=== PATIENT | male | born 1975 | race Caucasian/White ===

== ENCOUNTER 2021-05-20 13:40 | Inpatient (IN) | payer MEDICARE, OTHER ==
[~2021-05-20] VITALS: Ht 188 cm; Wt 66.7 kg
[2021-05-20] MEDS ORDERED: LEVETIRACETAM 1000MG PREMIX 100 ML IV ONE (14:15)
[2021-05-20] MEDS ORDERED: LORAZEPAM 2MG/ML CPJ IV ONE (14:15)
[2021-05-20 14:44] LABS: BASOPHILS % 0.5 % (0.0-2.0); EOSINOPHILS % 0.4 % (0.0-5.0); LYMPHOCYTES % 31.3 % (20.0-50.0); MEAN CORPUSCULAR HEMOGLOBIN 34.8 pg (28.0-32.0); MEAN CORPUSCULAR VOLUME 107.3 fL (80.0-94.0); MEAN PLATELET VOLUME 8.1 fl (7.4-10.4); MONOCYTES % 14.9 % (2.0-8.0); NEUTROPHILS % 52.9 % (40.0-76.0); PLATELET 183 x1000/uL (130-400); RED BLOOD CELL COUNT 3.73 mill/uL (4.7-6.1); RED CELL DISTRIBUTION WIDTH 15.6 % (11.6-14.6)
[2021-05-20 14:52] LABS: ETHANOL BLOOD < 10 mg/dL
[2021-05-20 15:00] LABS: CHLORIDE 96 mEq/L (98-107)
[2021-05-20] MEDS ORDERED: LORAZEPAM 1MG TABLET PO ONE (17:45)
[2021-05-20] MEDS ORDERED: MAGNESIUM/ALUMINUM HYDROXIDE/SIMETHICONE 30ML UDC PO PRN (19:15)
[2021-05-20] MEDS ORDERED: NITROGLYCERIN 0.4MG TABLET SL SL PRN (19:15)
[2021-05-20] MEDS ORDERED: CLONIDINE 0.1MG TABLET PO PRN (19:15)
[2021-05-20] MEDS ORDERED: LORAZEPAM 2MG/ML CPJ IV PRN (19:15)
[2021-05-20] MEDS ORDERED: ONDANSETRON HCL 4MG/2ML INJ IV PRN (19:15)
[2021-05-20] MEDS ORDERED: KETOROLAC 15MG/ML VIAL IV PRN (19:15)
[2021-05-20] MEDS ORDERED: IPRATROPIUM/ALBUTEROL 0.5-3(2.5)MG/3ML NEB NEB PRN (19:15)
[2021-05-20] MEDS ORDERED: SODIUM CHLORIDE 0.9% 1,000 ML IV ONE (19:15)
[2021-05-20] MEDS ORDERED: DOCUSATE SODIUM 100MG CAPSULE PO PRN (19:15)
[2021-05-20] MEDS ORDERED: GUAIFENESIN 200MG/10ML SUGAR FREE UDC PO PRN (19:15)
[2021-05-20] MEDS ORDERED: ACETAMINOPHEN 325MG TABLET PO PRN ×2 (19:15)
[2021-05-20 19:30] LABS: TOTAL IRON BINDING CAPACITY 336 ug/dL (250-450)
[2021-05-20 19:44] LABS: FOLIC ACID (FOLATE) SERUM 6.6 ng/mL (>5.38)
[2021-05-20] MEDS ORDERED: POTASSIUM CHLORIDE 20MEQ TABLET SR PO NR (20:00)
[2021-05-20] MEDS ORDERED: MVI, ADULT NO.1 10 ML, FOLIC ACID 1 MG, THIAMINE HCL 100 MG in SODIUM CHLORIDE 0.9% 1,0... IV NR (20:30)
[2021-05-20] MEDS ORDERED: ENOXAPARIN 40MG/0.4ML SYR SUBCUT SCH (21:00)
[2021-05-20] MEDS: FAMOTIDINE 20MG TABLET PO SCH (21:17)
[2021-05-20 22:00] VITALS: BP 162/108
[2021-05-20] MEDS: CHLORDIAZEPOXIDE 25MG CAPSULE PO SCH (22:06)
[2021-05-21] VITALS: BP 140/91
[2021-05-21 00:09] LABS: CREATINE KINASE 101 IU/L (39-308)
[2021-05-21 00:10] LABS: CREATINE KINASE MB FRACTION 1.7 ng/mL (0.5-3.6)
[2021-05-21 04:00] VITALS: BP 140/100
[2021-05-21] MEDS: CHLORDIAZEPOXIDE 25MG CAPSULE PO SCH (05:42)
[2021-05-21 08:00] VITALS: BP_SYST 14; BP_SYST 147; BP_DIAS 93
[2021-05-21] MEDS: FAMOTIDINE 20MG TABLET PO SCH (08:50)
[2021-05-21 10:00] VITALS: BP 142/91
== END 2021-05-21 11:40 | disposition left against medical advice (07) | DRG 100 ==
LOC: ER 13:40 → EDBEDREQTM 19:07 → EDBEDREQ 19:07 → ENRESERV 20:33 → 8WST 21:59
PROVIDERS: ADMIT Internal Medicine; ATTEND Internal Medicine
DX: G40.89 Other seizures (principal); G92.8 Other toxic encephalopathy; E87.1 Hypo-osmolality and hyponatremia; F10.239 Alcohol dependence with withdrawal, unspecified; G40.409 Other generalized epilepsy and epileptic syndromes, not intractable, without status epilepticus; D63.8 Anemia in other chronic diseases classified elsewhere; E87.6 Hypokalemia; Z88.0 Allergy status to penicillin
CPT/HCPCS: 36415; 71045; 80053; 80320; 82550; 82553; 82607; 82746; 82962; 83540; 83550; 84484; 85025; 93005; 93970; 99285; J1650; J1953; J2060; J3411; J3490; J7030; G0480

== ENCOUNTER 2022-05-10 09:48 | Inpatient (IN) | payer MEDICARE ==
[~2022-05-10] VITALS: Ht 190.5 cm; Wt 60.9 kg
[2022-05-10] MEDS ORDERED: FOLIC ACID 1 MG, THIAMINE HCL 100 MG, MVI, ADULT NO.1 10 ML in DEXTROSE 5% WATER 1,000 ML IV ONE ×4 (11:00)
[2022-05-10 12:13] LABS: BASOPHILS % 0.1 % (0.0-2.0); HEMATOCRIT. 29.1 % (42.0-52.0); HEMOGLOBIN. 9.7 g/dL (14.0-18.0); LYMPHOCYTES % 8.9 % (20.0-50.0); MEAN CORPUSCULAR HEMOGLOBIN 36.4 pg (28.0-32.0); MEAN CORPUSCULAR VOLUME 109.6 fL (80.0-94.0); MEAN PLATELET VOLUME 8.9 fl (7.4-10.4); MONOCYTES % 9.2 % (2.0-8.0); NEUTROPHILS % 81.8 % (40.0-76.0); PLATELET 69 x1000/uL (130-400); RED BLOOD CELL COUNT 2.65 mill/uL (4.7-6.1)
[2022-05-10 12:39] LABS: CHLORIDE 99 mEq/L (98-107)
[2022-05-10 13:03] LABS: ETHANOL BLOOD < 10 mg/dL
[2022-05-10] MEDS ORDERED: SODIUM CHLORIDE 0.9% 1,000 ML IV ONE (15:45)
[2022-05-10] MEDS ORDERED: CALCIUM GLUCONATE 100MG/ML 10ML VIAL IV NR (17:15)
[2022-05-11 04:00] VITALS: BP 91/65
[2022-05-11] MEDS ORDERED: HYDROCODONE/ACETAMINOPHEN 5/325MG TABLET PO PRN (04:45)
[2022-05-11] MEDS ORDERED: ACETAMINOPHEN 325MG TABLET PO PRN (04:45)
[2022-05-11] MEDS ORDERED: NALOXONE HCL 0.4MG/ML VIAL IV PRN (05:00)
[2022-05-11 08:00] VITALS: BP 97/70
[2022-05-11] MEDS: LEVETIRACETAM 500MG TABLET PO SCH ×2 (09:37→22:02)
[2022-05-11] MEDS: SODIUM CHLORIDE 0.45% 1,000 ML IV SCH ×2 (09:37→18:27)
[2022-05-11 12:00] VITALS: BP 103/73
[2022-05-11] MEDS ORDERED: VANCOMYCIN 1.25GM PMX (XELLIA) 250 ML IV NR (13:00)
[2022-05-11] MEDS ORDERED: PIPERACILLIN/TAZOBACTAM 3.375 G in DEXTROSE 5% WATER 50 ML IV SCH (14:00)
[2022-05-11 16:00] VITALS: BP 99/66
[2022-05-11] MEDS: LEVOFLOXACIN 500MG PREMIX 100 ML IV SCH (16:02)
[2022-05-11 18:17] LABS: BASOPHILS % 0.1 % (0.0-2.0); HEMATOCRIT. 25.1 % (42.0-52.0); HEMOGLOBIN. 8.2 g/dL (14.0-18.0); LYMPHOCYTES % 7.9 % (20.0-50.0); MEAN CORPUSCULAR HEMOGLOBIN 35.5 pg (28.0-32.0); MEAN PLATELET VOLUME 10.2 fl (7.4-10.4); MONOCYTES % 6.5 % (2.0-8.0); NEUTROPHILS % 85.5 % (40.0-76.0); RED CELL DISTRIBUTION WIDTH 21.6 % (11.6-14.6)
[2022-05-11 18:32] LABS: CHLORIDE 104 mEq/L (98-107)
[2022-05-11 18:39] LABS: PLATELET 46 x1000/uL (130-400)
[2022-05-11 18:40] LABS: BG BASE EXCESS -19.5 mmol/L (-2.0-2.0); BG CARBOXYHEMOGLOBIN 0.4 % (0.5-1.5); BG DEOXYHEMOGLOBIN 2.1 % (0.0-5.0); BG FRACTION INSPIRED OXYGEN 21; BG HCO3 ACT 5.6 mmol/L (22.0-26.0); BG METHEMOGLOBIN 0.2 % (0.0-1.5); BG OXYGEN SATURATION 97.9 % (92.0-98.5); BG OXYHEMOGLOBIN 97.3 % (94.0-97.0); BG PCO2 12.9 mmHg (35.0-45.0); BG PH 7.254 (7.350-7.450); BG PO2 139.6 mmHg (75.0-100.0); BG SAMPLE SITE RIGHT BRACHIAL; BG TOTAL HEMOGLOBIN 8.5 g/dL (12.0-18.0); BG VENT MODE ROOM AIR
[2022-05-11] MEDS ORDERED: DEXT 5%/0.45% NACL 500ML 1,000 ML IV SCH (19:00)
[2022-05-11] MEDS ORDERED: SODIUM BICARBONATE 8.4% 1 MEQ/ML 50ML SYR IV NR (19:38)
[2022-05-11] MEDS ORDERED: DEXT 5%/0.45% NACL 1000ML 1,000 ML IV SCH (19:41)
[2022-05-11 19:55] LABS: FOLIC ACID (FOLATE) SERUM >20 ng/mL ng/mL (>5.38); VITAMIN B12 SERUM 1535 pg/mL (211-911)
[2022-05-11 20:00] VITALS: BP 86/63
[2022-05-11] MEDS ORDERED: POTASSIUM CHLORIDE INJ 40 MEQ in DEXT 5% WATER 500 ML IV NR (20:30)
[2022-05-11 22:00] VITALS: BP 104/75
[2022-05-11] MEDS: LACTULOSE 20G/30ML UDC PO SCH (22:01)
[2022-05-11] MEDS: FAMOTIDINE 20MG TABLET PO SCH (22:02)
[2022-05-12] VITALS (12 sets, daily range): BP systolic 91–120; BP diastolic 53–77
[2022-05-12 00:26] LABS: CHLORIDE 105 mEq/L (98-107)
[2022-05-12] MEDS: VANCOMYCIN 750MG PREMIX 150 ML IV SCH ×4 (00:42→21:59)
[2022-05-12] MEDS ORDERED: POTASSIUM CHLORIDE INJ 40 MEQ in DEXT 5% WATER 500 ML IV SCH (01:00)
[2022-05-12] MEDS: LACTULOSE 20G/30ML UDC PO SCH ×3 (05:49→21:59)
[2022-05-12 09:23] LABS: HEMATOCRIT. 24.1 % (42.0-52.0); MEAN CORPUSCULAR HEMOGLOBIN 35.9 pg (28.0-32.0); MEAN CORPUSCULAR VOLUME 107.9 fL (80.0-94.0); RED BLOOD CELL COUNT 2.24 mill/uL (4.7-6.1); RED CELL DISTRIBUTION WIDTH 22.2 % (11.6-14.6)
[2022-05-12 09:37] LABS: PLATELET 22 x1000/uL (130-400)
[2022-05-12 09:51] LABS: CHLORIDE 105 mEq/L (98-107)
[2022-05-12] MEDS ORDERED: POTASSIUM CHLORIDE 20MEQ TABLET SR PO NR (10:45)
[2022-05-12] MEDS: LEVETIRACETAM 500MG TABLET PO SCH ×2 (11:11→21:58)
[2022-05-12] MEDS: INSULIN GLARGINE 100 UNITS/ML SUBCUT SCH ×2 (11:12→22:00)
[2022-05-12] MEDS: GUAIFENESIN 600MG ER TABLET PO SCH ×2 (11:12→21:58)
[2022-05-12] MEDS: IPRATROPIUM/ALBUTEROL 0.5-3(2.5)MG/3ML NEB HHN SCH ×2 (11:23→20:37)
[2022-05-12] MEDS: LEVOFLOXACIN 500MG PREMIX 100 ML IV SCH (11:33)
[2022-05-12] MEDS ORDERED: POTASSIUM CHLORIDE INJ 40 MEQ in DEXT 5% WATER 500 ML IV ONE (12:30)
[2022-05-12] MEDS: BLOOD SUGAR DIAGNOSTIC STRIP TEST SCH ×3 (12:50→21:59)
[2022-05-12 13:11] LABS: BG CARBOXYHEMOGLOBIN 0.5 % (0.5-1.5); BG DEOXYHEMOGLOBIN 6.3 % (0.0-5.0); BG FRACTION INSPIRED OXYGEN 36; BG METHEMOGLOBIN 0.2 % (0.0-1.5); BG OXYGEN SATURATION 93.7 % (92.0-98.5); BG PCO2 14.8 mmHg (35.0-45.0); BG PH 7.403 (7.350-7.450); BG PO2 73.1 mmHg (75.0-100.0); BG SAMPLE SITE RIGHT BRACHIAL; BG TOTAL HEMOGLOBIN 7.8 g/dL (12.0-18.0); BG VENT MODE NASAL CANNULA
[2022-05-12] MEDS: INSULIN LISPRO 100 UNITS/ML SUBCUT SCH ×3 (13:32→21:59)
[2022-05-12] MEDS ORDERED: SODIUM BICARBONATE 8.4% 1 MEQ/ML 50ML SYR IV NR (14:00)
[2022-05-12] MEDS ORDERED: SODIUM BICARBONATE 100 MEQ in DEXT 5%/0.45% NACL 1000ML 1,000 ML IV SCH (14:30)
[2022-05-12] MEDS: FAMOTIDINE 20MG TABLET PO SCH (21:58)
[2022-05-12] MEDS: CHLORDIAZEPOXIDE 25MG CAPSULE PO SCH (22:04)
[2022-05-12] MEDS: FOLIC ACID 1 MG, THIAMINE HCL 100 MG, MVI, ADULT NO.1 10 ML in DEXTROSE 5% WATER 1,000 ML IV SCH ×4 (23:08)
[2022-05-13] VITALS (13 sets, daily range): BP systolic 73–117; BP diastolic 52–75
[2022-05-13] MEDS: IPRATROPIUM/ALBUTEROL 0.5-3(2.5)MG/3ML NEB HHN SCH ×4 (02:28→20:07)
[2022-05-13] MEDS: VANCOMYCIN 750MG PREMIX 150 ML IV SCH (06:16)
[2022-05-13] MEDS: LACTULOSE 20G/30ML UDC PO SCH ×3 (06:16→22:06)
[2022-05-13 06:47] LABS: BASOPHILS % 0.1 % (0.0-2.0); EOSINOPHILS % 0.2 % (0.0-5.0); HEMATOCRIT. 23.3 % (42.0-52.0); LYMPHOCYTES % 8.8 % (20.0-50.0); MEAN CORPUSCULAR HEMOGLOBIN 35.7 pg (28.0-32.0); MEAN CORPUSCULAR VOLUME 104.4 fL (80.0-94.0); MEAN PLATELET VOLUME 8.5 fl (7.4-10.4); MONOCYTES % 12.6 % (2.0-8.0); NEUTROPHILS % 78.3 % (40.0-76.0); RED BLOOD CELL COUNT 2.23 mill/uL (4.7-6.1)
[2022-05-13 06:50] LABS: CHLORIDE 113 mEq/L (98-107)
[2022-05-13 06:55] LABS: PLATELET 19 x1000/uL (130-400)
[2022-05-13 06:56] LABS: VANCOMYCIN TROUGH 30.8 ug/mL (5.0-10.0)
[2022-05-13] MEDS: BLOOD SUGAR DIAGNOSTIC STRIP TEST SCH ×4 (08:12→21:00)
[2022-05-13] MEDS: LORAZEPAM 2MG/ML CPJ IV PRN ×3 (09:00→17:41)
[2022-05-13 10:01] LABS: NUCLEATED RED BLOOD CELLS 2 /100 WBC
[2022-05-13 10:02] LABS: PLATELET ESTIMATE MARKEDLY DECREASED
[2022-05-13] MEDS ORDERED: POTASSIUM CHLORIDE INJ 40 MEQ in DEXT 5% WATER 250 ML IV ONE (10:15)
[2022-05-13] MEDS: LEVOFLOXACIN 500MG PREMIX 100 ML IV SCH (10:25)
[2022-05-13] MEDS: CHLORDIAZEPOXIDE 25MG CAPSULE PO SCH ×2 (10:25→22:06)
[2022-05-13] MEDS: GUAIFENESIN 600MG ER TABLET PO SCH ×2 (10:26→22:07)
[2022-05-13] MEDS: LEVETIRACETAM 500MG TABLET PO SCH ×2 (10:26→22:06)
[2022-05-13] MEDS: INSULIN GLARGINE 100 UNITS/ML SUBCUT SCH ×2 (10:29→22:00)
[2022-05-13] MEDS: INSULIN LISPRO 100 UNITS/ML SUBCUT SCH ×4 (10:32→21:00)
[2022-05-13] MEDS ORDERED: POTASSIUM CHLORIDE 20MEQ TABLET SR PO SCH (11:00)
[2022-05-13 13:49] LABS: PLATELET ESTIMATE MARKEDLY DECREASED
[2022-05-13] MEDS: KCL 20MEQ/100ML X 2 FOR TOTAL KCL 40MEQ/200ML IV SCH ×2 (13:56→15:56)
[2022-05-13] MEDS: DEXTROSE 50% WATER 50ML SYRINGE IV PRN (17:00)
[2022-05-13] MEDS ORDERED: SODIUM CHLORIDE 0.9% ONE (20:45)
[2022-05-13] MEDS ORDERED: [UNRECOGNIZED DRUG - OTHER] ONE (20:45)
[2022-05-13] MEDS ORDERED: SODIUM CHLORIDE 0.9% 250 ML IV ONE (21:15)
[2022-05-13] MEDS: FAMOTIDINE 20MG TABLET PO SCH (22:07)
[2022-05-14] VITALS (11 sets, daily range): BP systolic 79–123; BP diastolic 54–74
[2022-05-14] MEDS: FOLIC ACID 1 MG, THIAMINE HCL 100 MG, MVI, ADULT NO.1 10 ML in DEXTROSE 5% WATER 1,000 ML IV SCH ×8 (00:05→21:33)
[2022-05-14] MEDS: IPRATROPIUM/ALBUTEROL 0.5-3(2.5)MG/3ML NEB HHN SCH ×4 (01:16→20:30)
[2022-05-14] MEDS ORDERED: VANCOMYCIN 1,000 MG in DEXT 5% WATER 250 ML IV SCH (06:00)
[2022-05-14] MEDS: LACTULOSE 20G/30ML UDC PO SCH ×3 (06:00→21:42)
[2022-05-14 07:08] LABS: HIV SCREEN 4G Non Reactive (Non Reactive)
[2022-05-14] MEDS: BLOOD SUGAR DIAGNOSTIC STRIP TEST SCH ×4 (07:45→20:26)
[2022-05-14] MEDS: INSULIN LISPRO 100 UNITS/ML SUBCUT SCH ×4 (08:00→20:26)
[2022-05-14] MEDS: LEVETIRACETAM 500MG TABLET PO SCH ×2 (08:51→21:32)
[2022-05-14] MEDS: CHLORDIAZEPOXIDE 25MG CAPSULE PO SCH ×2 (08:51→21:38)
[2022-05-14] MEDS: GUAIFENESIN 600MG ER TABLET PO SCH ×2 (08:54→21:00)
[2022-05-14] MEDS: LEVOFLOXACIN 500MG PREMIX 100 ML IV SCH (11:19)
[2022-05-14 12:02] LABS: HEMATOCRIT. 25.3 % (42.0-52.0); HEMOGLOBIN. 8.7 g/dL (14.0-18.0); MEAN CORPUSCULAR HEMOGLOBIN 35.7 pg (28.0-32.0); MEAN CORPUSCULAR VOLUME 104.3 fL (80.0-94.0); MEAN PLATELET VOLUME 10.2 fl (7.4-10.4); RED BLOOD CELL COUNT 2.43 mill/uL (4.7-6.1); RED CELL DISTRIBUTION WIDTH 22.1 % (11.6-14.6)
[2022-05-14 12:08] LABS: PLATELET 27 x1000/uL (130-400)
[2022-05-14 12:24] LABS: CHLORIDE 113 mEq/L (98-107)
[2022-05-14] MEDS: DEXTROSE 50% WATER 50ML SYRINGE IV PRN (12:31)
[2022-05-14] MEDS ORDERED: POTASSIUM CHLORIDE INJ 40 MEQ in DEXT 5% WATER 500 ML IV NR (14:00)
[2022-05-14] MEDS: FAMOTIDINE 20MG TABLET PO SCH (21:00)
[2022-05-14 23:29] LABS: NUCLEATED RED BLOOD CELLS 1 /100 WBC
[2022-05-14 23:30] LABS: PLATELET ESTIMATE MARKEDLY DECREASED
[2022-05-15] VITALS (13 sets, daily range): BP systolic 88–131; BP diastolic 51–99
[2022-05-15] MEDS: LACTULOSE 20G/30ML UDC PO SCH ×3 (05:05→21:53)
[2022-05-15] MEDS: BLOOD SUGAR DIAGNOSTIC STRIP TEST SCH ×4 (07:46→20:22)
[2022-05-15] MEDS: INSULIN LISPRO 100 UNITS/ML SUBCUT SCH ×4 (08:00→20:22)
[2022-05-15] MEDS: CHLORDIAZEPOXIDE 25MG CAPSULE PO SCH (08:28)
[2022-05-15] MEDS: GUAIFENESIN 600MG ER TABLET PO SCH ×2 (08:28→21:00)
[2022-05-15] MEDS: LEVETIRACETAM 500MG TABLET PO SCH ×2 (08:28→20:32)
[2022-05-15] MEDS: DEXTROSE 50% WATER 50ML SYRINGE IV PRN (08:40)
[2022-05-15] MEDS: IPRATROPIUM/ALBUTEROL 0.5-3(2.5)MG/3ML NEB HHN SCH ×4 (08:57→21:00)
[2022-05-15] MEDS: LEVOFLOXACIN 500MG PREMIX 100 ML IV SCH (11:00)
[2022-05-15] MEDS: DEXT 5%/0.45% NACL 1000ML 1,000 ML IV SCH (13:27)
[2022-05-15] MEDS: FAMOTIDINE 20MG TABLET PO SCH (21:00)
[2022-05-15] MEDS: FOLIC ACID 1 MG, THIAMINE HCL 100 MG, MVI, ADULT NO.1 10 ML in DEXTROSE 5% WATER 1,000 ML IV SCH ×4 (22:00)
[2022-05-15 23:18] LABS: HEMATOCRIT. 25.2 % (42.0-52.0); HEMOGLOBIN. 8.6 g/dL (14.0-18.0); MEAN CORPUSCULAR VOLUME 105.3 fL (80.0-94.0); MEAN PLATELET VOLUME 11.1 fl (7.4-10.4); RED BLOOD CELL COUNT 2.39 mill/uL (4.7-6.1); RED CELL DISTRIBUTION WIDTH 22.3 % (11.6-14.6)
[2022-05-15 23:19] LABS: CHLORIDE 105 mEq/L (98-107)
[2022-05-15 23:38] LABS: PLATELET 48 x1000/uL (130-400)
[2022-05-16] VITALS (97 sets, daily range): BP systolic 44–134; BP diastolic 18–100
[2022-05-16] MEDS: IPRATROPIUM/ALBUTEROL 0.5-3(2.5)MG/3ML NEB HHN SCH ×4 (01:00→20:03)
[2022-05-16 05:14] LABS: NUCLEATED RED BLOOD CELLS 1 /100 WBC; PLATELET ESTIMATE DECREASED
[2022-05-16] MEDS: LACTULOSE 20G/30ML UDC PO SCH ×3 (05:19→21:56)
[2022-05-16] MEDS: INSULIN LISPRO 100 UNITS/ML SUBCUT SCH ×4 (08:00→22:02)
[2022-05-16] MEDS: BLOOD SUGAR DIAGNOSTIC STRIP TEST SCH ×4 (08:07→21:00)
[2022-05-16] MEDS ORDERED: CHLORDIAZEPOXIDE 25MG CAPSULE PO SCH (09:00)
[2022-05-16] MEDS ORDERED: SODIUM CHLORIDE 0.9% 1,000 ML IV SCH ×2 (09:15→13:15)
[2022-05-16] MEDS: LEVETIRACETAM 500MG TABLET PO SCH ×2 (09:25→21:56)
[2022-05-16] MEDS: GUAIFENESIN 600MG ER TABLET PO SCH ×2 (09:26→21:56)
[2022-05-16] MEDS ORDERED: SODIUM CHLORIDE 0.9% 250 ML IV ONE (11:15)
[2022-05-16] MEDS: DEXT 5%/0.45% NACL 1000ML 1,000 ML IV SCH (11:33)
[2022-05-16] MEDS: NOREPINEPHRINE 32 MG in DEXT 5% WATER 218 ML IV PRN (11:48)
[2022-05-16 12:20] LABS: HEMATOCRIT. 25.4 % (42.0-52.0); HEMOGLOBIN. 8.7 g/dL (14.0-18.0); MEAN CORPUSCULAR HEMOGLOBIN 35.9 pg (28.0-32.0); MEAN CORPUSCULAR VOLUME 104.5 fL (80.0-94.0); MEAN PLATELET VOLUME 10.5 fl (7.4-10.4); RED BLOOD CELL COUNT 2.43 mill/uL (4.7-6.1)
[2022-05-16 12:31] LABS: PLATELET 41 x1000/uL (130-400)
[2022-05-16 13:07] LABS: PLATELET ESTIMATE MARKEDLY DECREASED
[2022-05-16] MEDS ORDERED: HYDROCORTISONE SOD SUCCINATE 100 MG/2 ML VIAL IV SCH (13:15)
[2022-05-16] MEDS: PHENYLEPHRINE 100 MG in DEXT 5% WATER 240 ML IV PRN ×2 (13:35→21:57)
[2022-05-16 13:54] LABS: CHLORIDE 98 mEq/L (98-107)
[2022-05-16] MEDS ORDERED: FUROSEMIDE 20MG/2ML VIAL IVP NR (14:00)
[2022-05-16] MEDS ORDERED: PIPERACILLIN/TAZOBACTAM 3.375 G in DEXTROSE 5% WATER 50 ML IV SCH (14:00)
[2022-05-16] MEDS ORDERED: VANCOMYCIN 1.25GM PMX (XELLIA) 250 ML IV NR (14:00)
[2022-05-16 14:06] LABS: CREATINE KINASE 26 IU/L (39-308); CREATINE KINASE MB FRACTION < 1.0 ng/mL (0.5-3.6)
[2022-05-16] MEDS ORDERED: LEVOFLOXACIN 750MG PREMIX 150 ML IV SCH (15:00)
[2022-05-16] MEDS ORDERED: MIDAZOLAM HCL 100 MG in SODIUM CHLORIDE 0.9% 100 ML IV PRN (15:30)
[2022-05-16] MEDS ORDERED: MIDAZOLAM 100MG/100ML PMX 100 ML IV PRN (15:30)
[2022-05-16] MEDS ORDERED: FENTANYL CITRATE 2,500 MCG in SODIUM CHLORIDE 0.9% 200 ML IV PRN ×2 (15:30→15:45)
[2022-05-16] MEDS ORDERED: FENTANYL 2500MCG/250ML PMX 250 ML IV PRN (15:30)
[2022-05-16] MEDS: AZTREONAM 1 G in DEXTROSE 5% WATER 50 ML IV SCH (16:05)
[2022-05-16 16:25] LABS: BG BASE EXCESS -4.6 mmol/L (-2.0-2.0); BG CARBOXYHEMOGLOBIN 0.3 % (0.5-1.5); BG DEOXYHEMOGLOBIN 3.4 % (0.0-5.0); BG FRACTION INSPIRED OXYGEN 100; BG METHEMOGLOBIN 0.2 % (0.0-1.5); BG OXYGEN SATURATION 96.6 % (92.0-98.5); BG OXYHEMOGLOBIN 96.1 % (94.0-97.0); BG PCO2 35.2 mmHg (35.0-45.0); BG PH 7.373 (7.350-7.450); BG PO2 96.9 mmHg (75.0-100.0); BG SAMPLE SITE RIGHT RADIAL; BG TOTAL HEMOGLOBIN 11.1 g/dL (12.0-18.0); BG VENT MODE VENT - AC
[2022-05-16] MEDS ORDERED: POTASSIUM CHLORIDE INJ 40 MEQ in DEXT 5% WATER 250 ML IV NR (17:00)
[2022-05-16 19:23] LABS: TOTAL IRON BINDING CAPACITY 185 ug/dL (250-450)
[2022-05-16] MEDS: VASOPRESSIN 20 UNIT in SODIUM CHLORIDE 0.9% 99 ML IV PRN (19:49)
[2022-05-16] MEDS ORDERED: POTASSIUM CHLORIDE INJ 40 MEQ in DEXT 5% WATER 500 ML IV ONE (20:45)
[2022-05-16] MEDS ORDERED: EPINEPHRINE 10 MG in SODIUM CHLORIDE 0.9% 240 ML IV PRN (21:00)
[2022-05-16] MEDS ORDERED: SODIUM CHLORIDE 0.9% 1000ML BAG (SEPSIS BOLUS) IV NR (21:00)
[2022-05-16] MEDS ORDERED: MAGNESIUM 1 G PREMIX 100 ML IV NR (21:00)
[2022-05-16] MEDS: FAMOTIDINE 20MG TABLET PO SCH (21:56)
[2022-05-16] MEDS: KCL 20MEQ/100ML X 2 FOR TOTAL KCL 40MEQ/200ML IV SCH (21:58)
[2022-05-16] MEDS: FOLIC ACID 1 MG, THIAMINE HCL 100 MG, MVI, ADULT NO.1 10 ML in DEXTROSE 5% WATER 1,000 ML IV SCH ×4 (23:06)
[2022-05-17] VITALS (94 sets, daily range): BP systolic 37–175; BP diastolic 23–148
[2022-05-17] MEDS: KCL 20MEQ/100ML X 2 FOR TOTAL KCL 40MEQ/200ML IV SCH ×3 (00:11→11:30)
[2022-05-17] MEDS: LACTULOSE 20G/30ML UDC PO SCH ×3 (05:20→21:13)
[2022-05-17] MEDS: AZTREONAM 1 G in DEXTROSE 5% WATER 50 ML IV SCH ×2 (05:21→17:42)
[2022-05-17] MEDS: VASOPRESSIN 20 UNIT in SODIUM CHLORIDE 0.9% 99 ML IV PRN ×2 (05:32→16:44)
[2022-05-17] MEDS ORDERED: VANCOMYCIN 1G PREMIX 200 ML IV SCH (06:00)
[2022-05-17] MEDS: DEXT 5%/0.45% NACL 1000ML 1,000 ML IV SCH ×2 (07:00→12:45)
[2022-05-17] MEDS: BLOOD SUGAR DIAGNOSTIC STRIP TEST SCH ×4 (07:50→21:03)
[2022-05-17] MEDS ORDERED: LIDOCAINE HCL 1% 30ML VIAL (10MG/ML) ONE (08:18)
[2022-05-17] MEDS: NOREPINEPHRINE 32 MG in DEXT 5% WATER 218 ML IV PRN ×2 (08:26→18:00)
[2022-05-17] MEDS: PHENYLEPHRINE 100 MG in DEXT 5% WATER 240 ML IV PRN ×2 (08:31→16:45)
[2022-05-17] MEDS: IPRATROPIUM/ALBUTEROL 0.5-3(2.5)MG/3ML NEB HHN SCH ×3 (08:35→20:35)
[2022-05-17] MEDS: GUAIFENESIN 600MG ER TABLET PO SCH ×2 (09:00→20:09)
[2022-05-17] MEDS ORDERED: MAGNESIUM 2 G PREMIX 50 ML IV NR (09:15)
[2022-05-17] MEDS ORDERED: POTASSIUM CHLORIDE INJ 40 MEQ in DEXT 5% WATER 250 ML IV ONE (09:15)
[2022-05-17] MEDS: LEVETIRACETAM 500MG PREMIX 100 ML IV SCH ×2 (09:31→21:14)
[2022-05-17] MEDS: INSULIN LISPRO 100 UNITS/ML SUBCUT SCH ×4 (09:31→21:00)
[2022-05-17 09:45] LABS: BG BASE EXCESS -12.1 mmol/L (-2.0-2.0); BG DEOXYHEMOGLOBIN 0.8 % (0.0-5.0); BG FRACTION INSPIRED OXYGEN 100; BG HCO3 ACT 13.5 mmol/L (22.0-26.0); BG METHEMOGLOBIN 0.6 % (0.0-1.5); BG OXYGEN SATURATION 99.2 % (92.0-98.5); BG OXYHEMOGLOBIN 98.6 % (94.0-97.0); BG PCO2 29.8 mmHg (35.0-45.0); BG PH 7.275 (7.350-7.450); BG PO2 323.3 mmHg (75.0-100.0); BG SAMPLE SITE RIGHT FEMORAL; BG TOTAL HEMOGLOBIN 9.1 g/dL (12.0-18.0); BG VENT MODE VENT - AC
[2022-05-17] MEDS ORDERED: SODIUM BICARBONATE 8.4% 1 MEQ/ML 50ML SYR IV NR (10:00)
[2022-05-17 10:36] LABS: HEMATOCRIT. 25.7 % (42.0-52.0); HEMOGLOBIN. 8.6 g/dL (14.0-18.0); MEAN CORPUSCULAR HEMOGLOBIN 34.5 pg (28.0-32.0); MEAN CORPUSCULAR VOLUME 103.6 fL (80.0-94.0); MEAN PLATELET VOLUME 9.8 fl (7.4-10.4); RED BLOOD CELL COUNT 2.48 mill/uL (4.7-6.1); RED CELL DISTRIBUTION WIDTH 21.6 % (11.6-14.6)
[2022-05-17] MEDS ORDERED: SODIUM CHLORIDE 0.9% 500 ML IV ONE ×2 (11:00→14:00)
[2022-05-17 11:07] LABS: INR 1.5; PROTHROMBIN TIME 15.5 sec (9.6-11.0)
[2022-05-17 11:08] LABS: PLATELET 46 x1000/uL (130-400)
[2022-05-17 11:19] LABS: CREATINE KINASE MB FRACTION 2.2 ng/mL (0.5-3.6)
[2022-05-17] MEDS ORDERED: HYDROCORTISONE SOD SUCCINATE 250 MG/2 ML VIAL IV NR (12:00)
[2022-05-17] MEDS: METRONIDAZOLE 500 MG PREMIX 100 ML IV SCH ×2 (14:25→21:13)
[2022-05-17 14:46] LABS: HEPATITIS B SURFACE ANTIGEN NEGATIVE
[2022-05-17 16:46] LABS: BG BASE EXCESS -13.2 mmol/L (-2.0-2.0); BG CARBOXYHEMOGLOBIN 0.3 % (0.5-1.5); BG DEOXYHEMOGLOBIN 0.7 % (0.0-5.0); BG FRACTION INSPIRED OXYGEN 75; BG HCO3 ACT 12.8 mmol/L (22.0-26.0); BG METHEMOGLOBIN 0.5 % (0.0-1.5); BG OXYGEN SATURATION 99.3 % (92.0-98.5); BG OXYHEMOGLOBIN 98.5 % (94.0-97.0); BG PCO2 29.7 mmHg (35.0-45.0); BG PH 7.251 (7.350-7.450); BG PO2 318.4 mmHg (75.0-100.0); BG SAMPLE SITE RIGHT FEMORAL; BG VENT MODE VENT - AC
[2022-05-17] MEDS ORDERED: SODIUM BICARBONATE 100 MEQ in DEXT 5%/0.45% NACL 1000ML 1,000 ML IV SCH (18:00)
[2022-05-17 18:38] LABS: CLARITY URINE TURBID (CLEAR); COLOR URINE DARK YELLOW (YELLOW); PH URINE 5.5 (4.5-8.0); SPECIFIC GRAVITY URINE 1.015 (1.005-1.030)
[2022-05-17 18:39] LABS: KETONES URINE NEGATIVE (NEGATIVE); NITRITE URINE NEGATIVE (NEGATIVE); OCCULT BLOOD URINE 2+ (NEGATIVE); PROTEIN URINE 1+ (NEGATIVE); UROBILINOGEN URINE 0.2 E.U./dL (0.2-1.0)
[2022-05-17 18:40] LABS: LEUKOCYTE ESTERASE URINE 2+ (NEGATIVE)
[2022-05-17 20:05] LABS: PLATELET ESTIMATE MARKEDLY DECREASED
[2022-05-17] MEDS: FAMOTIDINE 20MG TABLET PO SCH (20:09)
[2022-05-17] MEDS: DEXTROSE 50% WATER 50ML SYRINGE IV PRN (20:45)
[2022-05-17] MEDS ORDERED: DEXT 10% WATER 1,000 ML IV SCH (21:00)
[2022-05-17] MEDS ORDERED: ALBUMIN HUMAN 25GM/500ML (5%) IV NR (21:00)
[2022-05-17] MEDS: DEXT 10% WATER 500 ML IV SCH (22:46)
[2022-05-18] VITALS (39 sets, daily range): BP systolic 0–197; BP diastolic 0–104
[2022-05-18 01:28] LABS: MEAN CORPUSCULAR HEMOGLOBIN 34.1 pg (28.0-32.0); MEAN CORPUSCULAR VOLUME 111.5 fL (80.0-94.0); MEAN PLATELET VOLUME 10.7 fl (7.4-10.4); RED BLOOD CELL COUNT 1.85 mill/uL (4.7-6.1); RED CELL DISTRIBUTION WIDTH 21.6 % (11.6-14.6)
[2022-05-18] MEDS: IPRATROPIUM/ALBUTEROL 0.5-3(2.5)MG/3ML NEB HHN SCH (02:08)
[2022-05-18 02:40] LABS: HEMATOCRIT. 20.7 % (42.0-52.0); HEMOGLOBIN. 6.3 g/dL (14.0-18.0); PLATELET 29 x1000/uL (130-400)
[2022-05-18] MEDS: PHENYLEPHRINE 100 MG in DEXT 5% WATER 240 ML IV PRN ×3 (02:50→11:21)
[2022-05-18] MEDS: NOREPINEPHRINE 32 MG in DEXT 5% WATER 218 ML IV PRN ×3 (03:47→11:21)
[2022-05-18] MEDS: LACTULOSE 20G/30ML UDC PO SCH ×2 (05:05→14:00)
[2022-05-18] MEDS: METRONIDAZOLE 500 MG PREMIX 100 ML IV SCH (05:05)
[2022-05-18] MEDS: VASOPRESSIN 20 UNIT in SODIUM CHLORIDE 0.9% 99 ML IV PRN (05:06)
[2022-05-18 05:34] LABS: PLATELET ESTIMATE MARKEDLY DECREASED
[2022-05-18] MEDS ORDERED: CALCIUM GLUCONATE 100MG/ML 10ML VIAL IV NR ×2 (06:15→07:30)
[2022-05-18] MEDS ORDERED: SODIUM POLYSTYRENE SULFONATE 15 G/60 ML BOT PR NR ×2 (06:15→07:30)
[2022-05-18] MEDS ORDERED: DOPAMINE 400MG/250ML PREMIX 250 ML IV PRN (08:00)
[2022-05-18] MEDS: DEXT 10% WATER 500 ML IV SCH (08:43)
[2022-05-18] MEDS: BLOOD SUGAR DIAGNOSTIC STRIP TEST SCH ×2 (08:43→12:50)
[2022-05-18] MEDS ORDERED: SODIUM BICARBONATE 8.4% 1 MEQ/ML 50ML SYR IV NR ×2 (08:45→10:00)
[2022-05-18 08:46] LABS: CHLORIDE 97 mEq/L (98-107)
[2022-05-18 08:50] LABS: BG BASE EXCESS -29.4 mmol/L (-2.0-2.0); BG CARBOXYHEMOGLOBIN 0.1 % (0.5-1.5); BG DEOXYHEMOGLOBIN 1.6 % (0.0-5.0); BG FRACTION INSPIRED OXYGEN 50; BG HCO3 ACT 3.4 mmol/L (22.0-26.0); BG METHEMOGLOBIN 0.6 % (0.0-1.5); BG OXYGEN SATURATION 98.4 % (92.0-98.5); BG OXYHEMOGLOBIN 97.7 % (94.0-97.0); BG PCO2 22.8 mmHg (35.0-45.0); BG PH 6.797 (7.350-7.450); BG PO2 177.5 mmHg (75.0-100.0); BG SAMPLE SITE RIGHT FEMORAL; BG TOTAL HEMOGLOBIN 8.5 g/dL (12.0-18.0); BG VENT MODE VENT - AC
[2022-05-18] MEDS: LEVETIRACETAM 500MG PREMIX 100 ML IV SCH (09:00)
[2022-05-18] MEDS: GUAIFENESIN 600MG ER TABLET PO SCH (09:00)
[2022-05-18 09:23] LABS: PHOSPHORUS 6.8 mg/dL (2.5-4.9)
[2022-05-18] MEDS: INSULIN LISPRO 100 UNITS/ML SUBCUT SCH (12:18)
[2022-05-18] MEDS: DEXT 5%/0.45% NACL 1000ML 1,000 ML IV SCH (12:35)
[2022-05-18] MEDS: MORPHINE SULFATE 250 MG in DEXT 5% WATER 225 ML IV PRN ×2 (14:32→14:35)
== END 2022-05-18 14:58 | DRG 871 ==
LOC: ER 09:48 → EDBEDREQ 13:35 → EDBEDREQTM 21:00 → MICUSO 05-11 03:43 → 8WST 05-11 03:45 → 5EST 05-11 21:48 → CVICU 05-16 10:45
PROVIDERS: ADMIT Internal Medicine; ATTEND Internal Medicine
PROC: 0BH17EZ Insertion of Endotracheal Airway into Trachea, Via Natural or Artificial Opening (ICD-10-PCS; 2022-05-16)
PROC: 5A1945Z Respiratory Ventilation, 24-96 Consecutive Hours (ICD-10-PCS; 2022-05-16)
PROC: 4A00X4Z Measurement of Central Nervous Electrical Activity, External Approach (ICD-10-PCS; principal; 2022-05-17)
PROC: B54MZZA Ultrasonography of Right Upper Extremity Veins, Guidance (ICD-10-PCS; 2022-05-17)
PROC: 05HY33Z Insertion of Infusion Device into Upper Vein, Percutaneous Approach (ICD-10-PCS; 2022-05-17)
PROC: 30233R1 Transfusion of Nonautologous Platelets into Peripheral Vein, Percutaneous Approach (ICD-10-PCS; 2022-05-17)
PROC: 5A12012 Performance of Cardiac Output, Single, Manual (ICD-10-PCS; 2022-05-18)
PROC: 30233N1 Transfusion of Nonautologous Red Blood Cells into Peripheral Vein, Percutaneous Approach (ICD-10-PCS; 2022-05-18)
DX: A41.9 Sepsis, unspecified organism (principal); J69.0 Pneumonitis due to inhalation of food and vomit; K72.00 Acute and subacute hepatic failure without coma; R65.21 Severe sepsis with septic shock; J96.00 Acute respiratory failure, unspecified whether with hypoxia or hypercapnia; D61.818 Other pancytopenia; D68.9 Coagulation defect, unspecified; I42.9 Cardiomyopathy, unspecified; N17.9 Acute kidney failure, unspecified; R64 Cachexia; Z68.1 Body mass index [BMI] 19.9 or less, adult; Z66 Do not resuscitate; I46.9 Cardiac arrest, cause unspecified; G40.909 Epilepsy, unspecified, not intractable, without status epilepticus; I50.9 Heart failure, unspecified; K80.20 Calculus of gallbladder without cholecystitis without obstruction; Z20.822 Contact with and (suspected) exposure to COVID-19; D53.9 Nutritional anemia, unspecified; F17.200 Nicotine dependence, unspecified, uncomplicated; F10.20 Alcohol dependence, uncomplicated; E83.51 Hypocalcemia; K70.10 Alcoholic hepatitis without ascites; G93.89 Other specified disorders of brain; M62.50 Muscle wasting and atrophy, not elsewhere classified, unspecified site; E87.5 Hyperkalemia; K52.9 Noninfective gastroenteritis and colitis, unspecified; K82.8 Other specified diseases of gallbladder; Z95.810 Presence of automatic (implantable) cardiac defibrillator; Z86.73 Personal history of transient ischemic attack (TIA), and cerebral infarction without residual deficits; Z90.49 Acquired absence of other specified parts of digestive tract; Z93.3 Colostomy status; Z88.0 Allergy status to penicillin; Z88.8 Allergy status to other drugs, medicaments and biological substances; Z74.01 Bed confinement status; Z71.41 Alcohol abuse counseling and surveillance of alcoholic
CPT/HCPCS: 31500; 36415; 36573; 36600; 71045; 74018; 76705; 78580; 80048; 80053; 80076; 80165; 80185; 80202; 80320; 81003; 82140; 82375; 82533; 82550; 82553; 82607; 82728; 82746; 82805; 82962; 83036; 83540; 83550; 83605; 83735; 83880; 84100; 84145; 84443; 84484; 85025; 85044; 85379; 86705; 86709; 86803; 86850; 86900; 86920; 87070; 87077; 87186; 87340; 87389; 87426; 92610; 93005; 93306; 93970; 94002; 94640; 95816; 99285; C1725; C9803; J0610; J1265; J1720; J1815; J1940; J1953; J1956; J2060; J2370; J3370; J3411; J3475; J3480; J3490; J7030; J7050; J7060; J7070; P9016; P9034; P9041; A4315; G0480